=== PATIENT | female | born 1970 | race Caucasian/White ===

== ENCOUNTER 2019-08-20 | Emergency (ER) | payer SELFPAY ==
[2019-08-20] MEDS ORDERED: LISINOPRIL40 MG PO (10:43)
[2019-08-20] MEDS ORDERED: MAXZIDE PO (10:43)
[2019-08-20] MEDS ORDERED: TORADOL PO (12:28)
== END 2019-08-20 12:42 | disposition home or self-care (01) | DRG 538 ==
DX: S73.102A Unspecified sprain of left hip, initial encounter (principal); S39.012A Strain of muscle, fascia and tendon of lower back, initial encounter; E11.9 Type 2 diabetes mellitus without complications; I10 Essential (primary) hypertension; F17.210 Nicotine dependence, cigarettes, uncomplicated; X58.XXXA Exposure to other specified factors, initial encounter